=== PATIENT | male | born 1940 ===

== ENCOUNTER 2025-07-28 09:23 | Outpatient (CLI) | payer MEDICARE, SELFPAY ==
--- OUTSIDE RECORDS SUMMARY | 2024-03-18 09:00 | XMS_ITS ---
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 Obey Gomez Primary Care Provider [phone] Results Component Value Reference Range Notes CBC w/ Diff Reviewed date:03/19/2024 12:00:00 AM Interpretation: Performing Lab: Notes/Report: Basophil Auto 0.5 % Eos Absolute 0.1 x10*3/mcL Eosinophil Auto 2.4 % Hct 36.8 % Hgb 12.5 g/dL Lymph Absolute 1.2 x10*3/mcL Lymph Auto 22.4 % MCH 29.8 pg MCHC 33.9 g/dL MCV 88.1 fL [place] Absolute 0.4 x10*3/mcL [place] Auto 8.4 % MPV 10.3 fL Neutro Absolute 3.4 x10*3/mcL Neutro Auto 66.3 % Platelets 250 K/mcL RBC 4.18 x10*6/mcL RDW 16.4 % WBC 5.1 K/mcL Iron Level and TIBC Reviewed date:03/19/2024 12:00:00 AM Interpretation: Performing Lab: Notes/Report: Iron Lvl 37 mcg/dL Iron Sat 9 % TIBC 395 mcg/dL Transferrin 282 mg/dL Vitamin B12 Reviewed date:03/19/2024 12:00:00 AM Interpretation: Performing Lab: Notes/Report: Vitamin B12 Lvl 750 pg/mL REASON FOR VISIT Discuss labs Vital Signs Temperature 97.7 degrees Fahrenheit 03/18/20 24 Blood pressure systolic 138 mm Hg 03/18/20 24 Blood pressure diastolic 80 mm Hg 024 Heart Rate 54 /min 03/18/2024 Respiratory Rate 16 /min 03/18/2024 Weight 164.13 lbs 03/18/2024 Oximetry 99 % 03/18/2024 Weight-kg 74.45 kg 03/18/2024 Encounters Encounter Location Date Provider Diagnosis [address] [address] 03/18/2024 Dr. Obey Gomez Anemia, unspecified D64.9 ; Elevated prostate specific antigen [PSA] R97.20 and Enlarged prostate with lower urinary tract symptoms N40.1 Assessments Encounter Date Diagnosis (ICD Code) Assessment Notes Treatment Notes Treatment Clinical Notes Section Notes 03/18/2024 Anemia, unspecified (ICD-10 - D64.9) 03/18/2024 Elevated prostate specific antigen [PSA] (ICD-10 - R97.20) 03/18/2024 Enlarged prostate with lower urinary tract symptoms (ICD-10 - N40.1) Plan Of Treatment Next Appt Details Provider Name:Dr. Obey seay, 05/20/2026 10:00:00 AM, [address] [place] [address], [id number], [phone] Progress Notes * KASHIFMarquise FDOB:1940 (85 yo M)Acc No.[id number]:03/18/2024 Patient: Getachew Ford Provider: Inocencia Gomez MD :1940 A ge:84 Y S ex:Male Date:03/18/2024 Phone: Address:[address] [place], [place] [id number] Subjective: * Chief Complaints: * D iscuss labs Objective: * Vitals: B P: 138/80 mm Hg, HR: 54 /min, RR: 16 /min, Temp: 97.7 F, Oxygen sat %: 99 %, Wt: 164.13 lbs, Wt-k.45 kg. Past Vitals:* 07/07/2023 BP: 118/64 mm Hg, HR: 61 /mi n, Oxygen sat %: 98 %, Wt: 156.13 lbs, Wt-k.82 kg Assessment: * Assessment: 1. A nemia, unspecified - D64.9 S pecify :Src Diagnosis Name: Anemia 2 . E levated prostate specific antigen [PSA] - R97.20 S pecify :Src Diagnosis Name: Elevated PSA, between 10 and less than 20 ng/ml 3 . E nlarged prostate with lower urinary tract symptoms - N40.1 ?Specify :Src Diagnosis Name: Benign prostatic hyperplasia with urinary frequency Plan: * Labs: * L ab: Iron Level and TIBC Value Reference Range I xenia Lvl 37 mcg/dL * I xenia Sat 9 % * T IBC 395 mcg/dL * T ransferrin 282 mg/dL ?Lab: Vitamin B12* Value Reference Range V itamin B12 Lvl 750 pg/mL * Vitamin B12 Lvl: _ V itamin B12 Interpretation: N ormal Range: 180-914 pg/mL I ndeterminate: 140-180 pg/mL D eficient: <140 pg/mL _ ?Lab: CBC w/ Diff* Value Reference Range B asophil Auto 0.5 % * E os Absolute 0.1 x10*3/mcL * E osinophil Auto 2.4 % * H ct 36.8 % * H gb 12.5 g/dL * L ymph Absolute 1.2 x10*3/mcL * L ymph Auto 22.4 % * M CH 29.8 pg * M CHC 33.9 g/dL * M CV 88.1 fL * M adriana Absolute 0.4 x10*3/mcL * M adriana Auto 8.4 % * M PV 10.3 fL * N eutro Absolute 3.4 x10*3/mcL * N [place] Auto 66.3 % * P latelets 250 K/mcL * R BC 4.18 x10*6/mcL * R DW 16.4 % * W BC 5.1 K/mcL * Electronic signature of Dr. Obey Gomez on 07/28/2025 at 10:15 AM CDT Sign off status: Pending * Provider: Inocencia Gomez MD Date: 0 03/18/2024 Generated for Kalani aguilar/Altheag/eTransmitting on: 0 07/28/2025 10:15 AM CDT
--- NOTE | 2025-07-28 11:45 | NEURO_ITS ---
Impression: # Complains of balance difficulties. History of back surgery a long time ago. ? # Axonal motor/sensory neuropathy. ? # Abnormal Needle/EMG exam with neurogenic changes distally. Nerve Conduction Studies ?Stim Site NR Peak (ms) P-T Amp (?V) Site1 Site2 Delta-P (ms) Dist (cm) Elier (m/s) Left Sup Fibular Anti Sensory (Ant Lat Mall)??? NO RESPONSE 14 cm NR 14 cm Ant Lat Mall 16.0 Right Sup Fibular Anti Sensory (Ant Lat Mall)??? NO RESPONSE 14 cm NR 14 cm Ant Lat Mall 16.0 Left Sural Anti Sensory (Lat Mall)??? NO RESPONSE Calf NR Calf Lat Mall 16.0 Right Sural Anti Sensory (Lat Mall)??? NO RESPONSE Calf NR Calf Lat Mall 16.0 ?Stim Site NR Onset (ms) O-P Amp (mV) Site1 Site2 Delta-0 (ms) Dist (cm) Elier (m/s) Left Peroneal Motor (Vastus Med) Ankle ? 5.0 0.3 Popit Ankle 11.1 42.0 38 Popit ? 16.1 0.3 Right Peroneal Motor (Vastus Med) Ankle ? 4.8 1.8 Popit Ankle 11.1 43.0 39 Popit ? 15.9 1.7 Left Tibial Motor (Abd Addison Brev) Ankle ? 5.0 0.4 Knee Ankle 12.0 45.0 38 Knee ? 17.0 0.3 Right Tibial Motor (Abd Addison Brev) Ankle ? 4.9 0.7 Knee Ankle 11.3 44.0 39 Knee ? 16.2 0.7 F Wave Studies ?NR F-Lat (ms) L-R F-Lat (ms) Left Peroneal (Mrkrs) (EDB)??? DISPERSED RESPONSE NR Right Peroneal (Mrkrs) (EDB) ? 60.47 Left Tibial (Mrkrs) (Abd Hallucis) ? 60.12 1.17 Right Tibial (Mrkrs) (Abd Hallucis) ? 61.29 1.17 Electromyography ?Side Muscle Nerve Root Ins Act Fibs Amp Dur Recrt Comment Right AntTibialis Dp Br Fibular L4-5 Nml Nml Nml >12ms Nml Right Gastroc Tibial S1-2 Nml Nml Nml >12ms Nml Right Fibularis Long Sup Br Fibular L5-S1 Nml Nml Nml >12ms Nml Right Flex Dig Long Tibial L5-S2 Nml Nml Nml >12ms Nml Right Ext Dig Brev Dp Br Fibular L5, S1 Nml Nml Nml >12ms Nml Right QuadratusFem QuadFemoris L4-5, S1 Nml Nml Nml >12ms Nml Left AntTibialis Dp Br Fibular L4-5 Nml Nml Nml >12ms Nml Left Gastroc Tibial S1-2 Nml Nml Nml >12ms Nml Left Fibularis Long Sup Br Fibular L5-S1 Nml Nml Nml >12ms Nml Left Flex Dig Long Tibial L5-S2 Nml Nml Nml >12ms Nml Left Ext Dig Brev Dp Br Fibular L5, S1 Nml Nml Nml >12ms Nml Left QuadratusFem QuadFemoris L4-5, S1 Nml Nml Nml >12ms Nml
== END 2025-07-28 09:24 | disposition home or self-care (01) ==
PROVIDERS: Visit Provider Pediatrics
DX: R26.89 Other abnormalities of gait and mobility (principal); R94.131 Abnormal electromyogram [EMG]
CPT/HCPCS: 95886; 95910